=== PATIENT | male | born 1995 | race Hispanic/Latino ===

== ENCOUNTER 2017-03-17 17:06 | Emergency (ER) | payer OTHER, MEDICAID ==
[2017-03-17 17:16] VITALS: BP 127/69; PULSE 60; RESP 16; TEMP 98.5; O2SAT 100
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
--- NOTE | 2017-03-17 21:03 | RAD ---
HISTORY: BACK PAIN COMPARISON: Chest x-ray performed 12/28/15 TECHNIQUE: Chest PA and lateral FINDINGS: LUNGS: No focal consolidation. Please note that chest x-ray has limited sensitivity for the detection of pulmonary masses. PLEURA: No significant pleural effusion identified. No definite pneumothorax . CARDIOVASCULAR: The cardiomediastinal silhouette appears within normal limits of size. OSSEOUS STRUCTURES: No acute osseous abnormality identified. VISUALIZED UPPER ABDOMEN: Unremarkable. OTHER FINDINGS: None. IMPRESSION: No focal consolidation, significant pleural effusion, or definite pneumothorax identified.
== END 2017-03-17 19:26 | disposition home or self-care (01) ==
LOC: H.ER 17:06
DX: S01.81XA Laceration without foreign body of other part of head, initial encounter (principal); W19.XXXA Unspecified fall, initial encounter; Y92.89 Other specified places as the place of occurrence of the external cause; J45.909 Unspecified asthma, uncomplicated

== ENCOUNTER 2017-11-09 12:09 | Emergency (ER) | payer MEDICAID, OTHER ==
[2017-11-09 12:21] VITALS: BP 147/74; PULSE 75; RESP 20; TEMP 97.9; O2SAT 98
[2017-11-09] MEDS ORDERED: Sodium Chloride 0.9% 1,000 ML IV STA (12:41)
--- NOTE | 2017-11-09 12:45 | ED PDOC ---
HPI: General Adult Time Seen by Provider: 11/09/17 12:13 Chief Complaint (Nursing): Hip Pain Chief Complaint (Provider): Cramps and Hip Pain History Per: Patient History/Exam Limitations: no limitations Onset/Duration Of Symptoms: Days (7 days ago) Current Symptoms Are (Timing): Still Present Additional Complaint(s): 22 yo male presents to the ED complaining of left hip pain and cramps along the groin area, onset of 7 days ago. Patient states that he forget to stretch before in engaging in physical activity, but denies any injury or trauma. Patient reports pain has gotten worse since onset, and notes that he obtained some bruises residing along his thigh. Past Medical History Reviewed: Historical Data, Nursing Documentation, Vital Signs Vital Signs: Last Vital Signs Temp 97.9 F 11/09/17 12:18 Pulse 75 11/09/17 12:18 Resp 20 11/09/17 12:18 BP 147/74 11/09/17 12:18 Pulse Ox 98 11/09/17 12:52 - Medical History PMH: Asthma - Surgical History Surgical History: No Surg Hx - Family History Family History: States: Unknown Family Hx - Social History Current smoker - smoking cessation education provided: No Ex-Smoker (has not smoked in the last 12 months): No Alcohol: None Drugs: Denies - Home Medications Home Medications: Ambulatory Orders Medication Instructions Recorded Ibuprofen [Motrin] 600 mg PO Q8 PRN #21 tab 03/17/17 - Allergies Allergies/Adverse Reactions: Allergies Allergy/AdvReac Type Severity Reaction Status Date / Time No Known Allergies Allergy Verified 11/09/17 12:18 Review of Systems ROS Statement: Except As Marked, All Systems Reviewed And Found Negative Constitutional: Negative for: Fever Musculoskeletal: Positive for: Other (groin and hip pain) Physical Exam - Reviewed Nursing Documentation Reviewed: Yes Vital Signs Reviewed: Yes - Physical Exam Appears: Positive for: Well, Non-toxic, No Acute Distress Head Exam: Positive for: ATRAUMATIC Skin: Positive for: Normal Color Eye Exam: Positive for: Normal appearance ENT: Positive for: Normal ENT Inspection Neck: Positive for: Normal. Negative for: Painless ROM Respiratory: Negative for: Accessory Muscle Use, Respiratory Distress Extremity: Positive for: Normal ROM, Other (pain with left hip flexion against resistance; ecchymosis on left thigh; muscle strength in hip 5/5). Negative for : Pedal Edema, Deformity Neurologic/Psych: Positive for: Alert, Oriented. Negative for: Motor/Sensory Deficits - Laboratory Results Result Diagrams: 11/09/17 12:59 11/09/17 12:59 - ECG O2 Sat by Pulse Oximetry: 98 (RA) Pulse Ox Interpretation: Normal Medical Decision Making Medical Decision Making: Time: --12:41 Impression: --muscle tear rule out rhabdomyolysis Plan: --Labs --Creatine Phosphokinase --IV fluids --Hip Left X-ray 2 views - Reassess -- Scribe Attestation: Documented by Terry Pryor acting as a scribe for Yelena Steinberg MD. Disposition - Clinical Impression Clinical Impression: Hip pain, Groin strain - Patient ED Disposition Is Patient to be Admitted: No Counseled Patient/Family Regarding: Diagnosis, Need For Followup, Rx Given - Disposition Disposition: Routine/Home Disposition Time: 14:18 Condition: GOOD Instructions: Groin Strain Forms: [employer] ([place]), [facility] ED School/Work Excuse
[2017-11-09 13:16] LABS: ALB/GLOB RATIO 1.3 (1.0-2.1); ALT/SGPT 49 U/L (21-72); AST/SGOT 33 U/L (17-59); BLOOD UREA NITROGEN 15 mg/dl (9-20); CALCIUM 9.2 mg/dL (8.4-10.2); GFR AFRICAN-AMERICAN > 60; GFR NON-AFRICAN AMERICAN > 60
[2017-11-09 14:04] LABS: HEMOGLOBIN 14.7 g/dL (12.0-18.0); MEAN CELL VOLUME 90.2 fl (80.0-94.0); MEAN CORPUSCULAR HEMOGLOBIN 31.2 pg (27.0-31.0); MEAN CORPUSCULAR HGB CONC 34.6 g/dL (33.0-37.0); RBC 4.7 Mil/uL (4.40-5.90); RED CELL DISTRIBUTION WIDTH 13.4 % (11.5-14.5); WHITE BLOOD COUNT 3.7 K/uL (4.8-10.8)
--- NOTE | 2017-11-11 09:42 | RAD ---
HISTORY: pain COMPARISON: No prior FINDINGS: BONES: Normal. No fracture. JOINTS: Normal. No osteoarthritis. SOFT TISSUE: Normal. OTHER FINDINGS: None . IMPRESSION: Normal Bone Xray.
== END 2017-11-09 14:28 | disposition home or self-care (01) ==
LOC: H.ER 12:09
DX: M25.552 Pain in left hip (principal); R10.30 Lower abdominal pain, unspecified; J45.909 Unspecified asthma, uncomplicated
CPT/HCPCS: 73502; 80053; 82550; 85027; 96360; 99283; J7040